=== PATIENT | male | born 1990 | race Hispanic/Latino ===

== ENCOUNTER 2018-12-10 02:00 | Emergency (ER) | payer BC, SELFPAY ==
[2018-12-10] MEDS ORDERED: MAGNE/ALUM HYDROXD 30 ML UCUP ONE (02:35)
[2018-12-10] MEDS ORDERED: LIDOCAINE VISCOUS 2% SOLN 15 ML UDC ONE (02:35)
[2018-12-10 02:53] LABS: Absolute Lymphocytes (CBC) 2.5 K/uL (0.7-4.9); Basophils % 0.5 % (0-1.3); Hematocrit 41.2 % (39.6-49.0); Lymphocytes % 30.6 % (15.3-44.8); MPV 8.2 fL (7.6-11.3); RBC Red Blood Cell Count 4.56 M/uL (4.33-5.43)
[2018-12-10 03:05] LABS: BUN Blood Urea Nitrogen 14 mg/dL (7-18); Bicarbonate 27 mmol/L (21-32); Glucose Level 97 mg/dL (74-106); Lipase 244 U/L (73-393); Potassium 3.8 mmol/L (3.5-5.1); Sodium Level 141 mmol/L (136-145); Troponin (Emerg Dept Use Only) < 0.02 ng/mL (0.0-0.045)
[2018-12-10 03:32] LABS: Barbiturates NEGATIVE (NEGATIVE); Benzodiazepines NEGATIVE (NEGATIVE); Cocaine NEGATIVE (NEGATIVE); METHAMPHETAM NEGATIVE (NEGATIVE); Methadone NEGATIVE (NEGATIVE); Opiates NEGATIVE (NEGATIVE); Phencyclidine NEGATIVE (NEGATIVE); THC Cannibis NEGATIVE (NEGATIVE)
--- NOTE | 2018-12-10 03:50 | EDPHYS ---
Physician Documentation [facility] Name: Umberto Hobson Age: 28 yrs Sex: Male : 1990 Arrival Date: 12/10/2018 Time: 02:01 Bed 13 Private MD: ED Physician Brandon Jesus HPI: 12/10 02:23 This 28 yrs old Male presents to ER via Ambulatory with complaints of Chest pkl Pain. 02:23 The patient or guardian reports chest pain that is located primarily in the substernal pkl area. The pain does not radiate. Associated signs and symptoms: The patient has no apparent associated signs or symptoms. The chest pain is described as tightness. Historical: - Allergies: 02:18 No Known Allergies; fc - Home Meds: 02:18 None [Active]; fc - PMHx: 02:18 None; fc - PSHx: 02:18 Appendectomy; fc - Immunization history:: Last tetanus immunization: unknown. - Social history:: Smoking status: Patient/guardian denies using tobacco, the patient reports quitting approximately .1 years ago, Patient/guardian denies using alcohol, street drugs. - Ebola Screening: : Patient negative for fever greater than or equal to 101.5 degrees Fahrenheit, and additional compatible Ebola Virus Disease symptoms Patient denies exposure to infectious person Patient denies travel to an Ebola-affected area in the 21 days before illness onset. ROS: 02:23 Eyes: Negative for injury, pain, redness, and discharge, ENT: Negative for injury, pkl pain, and discharge, Neck: Negative for injury, pain, and swelling. 02:23 Cardiovascular: Positive for chest pain. 02:23 Respiratory: Negative for cough, shortness of breath. 02:23 Abdomen/GI: Negative for abdominal pain, nausea, vomiting, and diarrhea. 02:23 Back: Negative for acute changes. 02:23 : Negative for urinary symptoms. 02:23 MS/extremity: Negative for acute changes. 02:23 Skin: Negative for rash. 02:23 Neuro: Negative for altered mental status. Exam: 02:23 Head/Face: Normocephalic, atraumatic. Eyes: Pupils equal round and reactive to light, pkl extra-ocular motions intact. Lids and lashes normal. Conjunctiva and sclera are non-icteric and not injected. Cornea within normal limits. Periorbital areas with no swelling, redness, or edema. ENT: Nares patent. No nasal discharge, no septal abnormalities noted. Tympanic membranes are normal and external auditory canals are clear. Oropharynx with no redness, swelling, or masses, exudates, or evidence of obstruction, uvula midline. Mucous membranes moist. Neck: Trachea midline, no thyromegaly or masses palpated, and no cervical lymphadenopathy. Supple, full range of motion without nuchal rigidity, or vertebral point tenderness. No Meningismus. Chest/axilla: Normal chest wall appearance and motion. Nontender with no deformity. No lesions are appreciated. Cardiovascular: Regular rate and rhythm with a normal S1 and S2. No gallops, murmurs, or rubs. Normal PMI, no JVD. No pulse deficits. Respiratory: Lungs have equal breath sounds bilaterally, clear to auscultation and percussion. No rales, rhonchi or wheezes noted. No increased work of breathing, no retractions or nasal flaring. Abdomen/GI: Soft, non-tender, with normal bowel sounds. No distension or tympany. No guarding or rebound. No evidence of tenderness throughout. Back: No spinal tenderness. No costovertebral tenderness. Full range of motion. Skin: Warm, dry with normal turgor. Normal color with no rashes, no lesions, and no evidence of cellulitis. MS/ Extremity: Pulses equal, no cyanosis. Neurovascular intact. Full, normal range of motion. Neuro: Awake and alert, GCS 15, oriented to person, place, time, and situation. Cranial nerves II-XII grossly intact. Motor strength 5/5 in all extremities. Sensory grossly intact. Cerebellar exam normal. Normal gait. Vital Signs: 02:02 BP 121 / 82; Pulse 66; Resp 18; Temp 99.1(O); Pulse Ox 100% on R/A; Weight 88.45 kg fc (R); Height 5 ft. 7 in. (170.18 cm) (R); Pain 8/10; 03:00 BP 122 / 88; Pulse 72; Resp 16; Pulse Ox 100% on R/A; jb4 04:00 BP 107 / 68; Pulse 65; Resp 16; Pulse Ox 98% on R/A; jb4 02:02 Body Mass Index 30.54 (88.45 kg, 170.18 cm) fc MDM: 02:05 Patient medically screened. pkl 02:36 Data reviewed: vital signs, nurses notes. ED course: now said patient has pkl recurrent frontal headache off and on for more than 3 months. Also he has patchy rash on both legs for about 2 weeks. rashes not itchy. 03:45 ED course: Patient feeling better. Asymptomatic. Discussed lab. and X' rays results pkl with patient and . Advised to follow PCP in 2 to 3 days for further evaluations. Patient and understood instructions. 12/10 02:23 Order name: CBC with Diff; Complete Time: 03:17 pkl 12/10 02:23 Order name: Chem 7; Complete Time: 03:17 pkl 12/10 02:23 Order name: D-Dimer; Complete Time: 03:17 pkl 12/10 02:23 Order name: Troponin (emerg Dept Use Only); Complete Time: 03:17 pkl 12/10 02:23 Order name: Lipase; Complete Time: 03:17 pkl 12/10 02:27 Order name: UDS; Complete Time: 03:37 pkl 12/10 02:23 Order name: XRAY CXR (1 view) pkl 12/10 02:40 Order name: CT Head Brain wo Cont pkl 12/10 03:13 Order name: Urine Dipstick--Ancillary (enter results) mw2 Administered Medications: 02:45 Drug: GI Cocktail without - (Maalox Suspension 30 ml, Lidocaine Liquid 2 % 15 jb4 ml) {Note: PT consumed half of the medication then decided not to take the rest..} Route: PO; 04:17 Follow up: Response: No adverse reaction jb4 Disposition: 12/10/18 03:49 Discharged to Home. Impression: Chest pain. Recurrent headaches. Rash both legs. - Condition is Stable. - Prescriptions for Protonix 40 mg Oral Tablet, Delayed Release (E.C.) - take 1 tablet by ORAL route once daily; 15 tablet. Ultram 50 mg Oral Tablet - take 1 tablet by ORAL route every 8 hours As needed; 15 tablet. - Medication Reconciliation Form, Thank You Letter, Antibiotic Education, Prescription Opioid Use form. - Follow up: Private Physician; When: 2 - 3 days; Reason: Re-evaluation by your physician. - Problem is new. - Symptoms have improved. Signatures: Dispatcher [employer] Brandon Balderrama MD MD pkl Samaria Gomez RN RN Soy Aldana RN RN jb4 Corrections: (The following items were deleted from the chart) 04:18 03:49 12/10/2018 03:49 Discharged to Home. Impression: Chest pain. Recurrent headaches. jb4 Rash both legs. Condition is Stable. Forms are Medication Reconciliation Form, Thank You Letter, Antibiotic Education, Prescription Opioid Use. Follow up: Private Physician; When: 2 - 3 days; Reason: Re-evaluation by your physician. Problem is new. Symptoms have improved. pkl
--- NOTE | 2018-12-10 03:50 | ER ---
Nurse's Notes [facility] Name: Umberto Hobson Age: 28 yrs Sex: Male : 1990 Arrival Date: 12/10/2018 Time: 02:01 Bed 13 Private MD: Diagnosis: Chest pain. Recurrent headaches. Rash both legs Presentation: 12/10 02:02 Presenting complaint: Patient states: that 1 hr [employer] he started to have chest pain while fc he was laying down. Denies any shortness of breath, nausea or vomiting. Transition of care: patient was not received from another setting of care. Onset of symptoms was December 10, 2018 at 01:00. Risk Assessment: Do you want to hurt yourself or someone else? Patient reports no desire to harm self or others. Initial Sepsis Screen: Does the patient meet any 2 criteria? No. Patient's initial sepsis screen is negative. Does the patient have a suspected source of infection? No. Patient's initial sepsis screen is negative. Care prior to arrival: None. 02:02 Method Of Arrival: Ambulatory 02:02 Acuity: RUDY 3 fc Historical: - Allergies: 02:18 No Known Allergies; fc - Home Meds: 02:18 None [Active]; fc - PMHx: 02:18 None; fc - PSHx: 02:18 Appendectomy; fc - Immunization history:: Last tetanus immunization: unknown. - Social history:: Smoking status: Patient/guardian denies using tobacco, the patient reports quitting approximately .1 years ago, Patient/guardian denies using alcohol, street drugs. - Ebola Screening: : Patient negative for fever greater than or equal to 101.5 degrees Fahrenheit, and additional compatible Ebola Virus Disease symptoms Patient denies exposure to infectious person Patient denies travel to an Ebola-affected area in the 21 days before illness onset. Screenin:17 Abuse screen: Denies threats or abuse. Nutritional screening: No deficits noted. Tuberculosis screening: No symptoms or risk factors identified. Fall Risk None identified. Assessment: 02:10 General: Appears in no apparent distress. uncomfortable, Behavior is calm, cooperative, jb4 appropriate for age. Pain: Complains of pain in chest Pain does not radiate. Pain currently is 8 out of 10 on a pain scale. Quality of pain is described as It feels tight Pain began 1 hour ago. Neuro: Level of Consciousness is awake, alert, obeys commands, Oriented to person, place, time, situation. Cardiovascular: Patient's skin is warm and dry. Rhythm is sinus rhythm. Respiratory: Airway is patent Respiratory effort is even, unlabored, Respiratory pattern is regular, symmetrical. GI: No deficits noted. No signs and/or symptoms were reported involving the gastrointestinal system. : No deficits noted. No signs and/or symptoms were reported regarding the genitourinary system. EENT: No deficits noted. No signs and/or symptoms were reported regarding the EENT system. Derm: Skin Skin is pink, warm \T\ dry. Musculoskeletal: Circulation, motion, and sensation intact. Range of motion: intact in all extremities. 03:03 Reassessment: Patient appears in no apparent distress at this time. Patient and/or jb4 family updated on plan of care and expected duration. Pain level reassessed. Patient is alert, oriented x 3, equal unlabored respirations, skin warm/dry/pink. 04:10 Reassessment: Patient appears in no apparent distress at this time. Patient and/or jb4 family updated on plan of care and expected duration. Pain level reassessed. Patient is alert, oriented x 3, equal unlabored respirations, skin warm/dry/pink. PT verbalized understanding of d/c and follow up instructions. Vital Signs: 02:02 BP 121 / 82; Pulse 66; Resp 18; Temp 99.1(O); Pulse Ox 100% on R/A; Weight 88.45 kg fc (R); Height 5 ft. 7 in. (170.18 cm) (R); Pain 8/10; 03:00 BP 122 / 88; Pulse 72; Resp 16; Pulse Ox 100% on R/A; jb4 04:00 BP 107 / 68; Pulse 65; Resp 16; Pulse Ox 98% on R/A; jb4 02:02 Body Mass Index 30.54 (88.45 kg, 170.18 cm) ED Course: 02:01 Patient arrived in ED. ds1 02:02 Arm band placed on Patient placed in an exam room, on a stretcher. fc 02:02 Patient has correct armband on for positive identification. Placed in gown. Bed in low fc position. Call light in reach. nurse monitoring on. Pulse ox on. NIBP on. 02:05 Brandon Jesus MD is Attending Physician. pkl 02:16 Triage completed. 02:22 Soy Aldana, RN is Primary Nurse. jb4 02:48 XRAY CXR (1 view) In Process Unspecified. EDMS 03:00 CT Head Brain wo Cont In Process Unspecified. EDMS 04:00 No provider procedures requiring assistance completed. IV discontinued, intact, jb4 bleeding controlled, No redness/swelling at site. Pressure dressing applied. Patient maintains SpO2 saturation greater than 95% on room air. Administered Medications: 02:45 Drug: GI Cocktail without - (Maalox Suspension 30 ml, Lidocaine Liquid 2 % 15 jb4 ml) {Note: PT consumed half of the medication then decided not to take the rest..} Route: PO; 04:17 Follow up: Response: No adverse reaction jb4 Outcome: 03:49 Discharge ordered by . pkl 04:00 Discharged to home ambulatory, with family. jb4 04:00 Condition: stable 04:00 Discharge instructions given to patient, family, Instructed on discharge instructions, follow up and referral plans. medication usage, Demonstrated understanding of instructions, follow-up care, medications, Prescriptions given X 3. 04:18 Patient left the ED. jb4 Signatures: Dispatcher [employer] EDCT Brandon Jesus MD MD pkSamaria Garcia, RN RN Eunice Fields ds1 Soy Aldana, RN RN jb4
[2018-12-10 04:52] VITALS: TEMP 99.1
[2018-12-10 04:54] VITALS: BP 107/68; O2SAT 98
--- NOTE | 2018-12-10 06:40 | RAD REPORT ---
EXAM DESCRIPTION: RAD - Chest Single View - 12/10/2018 2:48 am CLINICAL HISTORY: CHEST PAIN Chest pain. COMPARISON: <Comparisons> FINDINGS: Portable technique limits examination quality. The lungs are grossly clear. The heart is normal in size. No displaced fractures. IMPRESSION: No acute intrathoracic process suspected.
[2018-12-10 08:18] LABS: Urine Blood TRACE (NEG); Urine Glucose NEGATIVE (NEG); Urine Protein NEGATIVE (NEG); Urine Specific Gravity >1.030 (1.005-1.030)
--- NOTE | 2018-12-10 10:05 | RAD REPORT ---
EXAM DESCRIPTION: CT HEAD WITHOUT CONTRAST CLINICAL HISTORY: HEADACHE COMPARISON: None. TECHNIQUE: Axial [address] imaging of the brain. Reformatted coronal and sagittal images ob tained. This examination was performed according to our departmental dose optimization program, which include s automated exposure control, adjustment of the mA and/or kV according to patient size and/or use of iterative reconstruction technique. FINDINGS: Normal ventricle size and contour. Extra-axial fluid spaces appear normal. Guillen-white mica er differentiation is preserved. There is no edema, hemorrhage, mass, or midline shift. No large acut e territorial infarction. No hyperdense vessel. Normal cerebellum, vermis, fourth ventricle. No cerebellar tonsillar ectopia. Prepontine cisterns are not effaced. Normal sella contents. Normal appearance of the intraorbital contents. Clear paranasal sinuses. Mastoid air cells are clear bilaterally. Skull base is intact. Intact calvarium. Normal scalp soft tissues. IMPRESSION: 1. Negative CT brain. Electronically signed by: Kalina Valenzuela DO 12/10/2018 3:08 AM CDT Due to temporary technical issues with the PACS/Fluency reporting system, reports are being signed by the in house radiologist as a courtesy to ensure prompt reporting. The interpreting radiologist is f ully responsible for the content of the report.
--- NOTE | 2018-12-10 12:13 | EKG ---
Test Date: 2018-12-10 Test Time: 02:07:24 [employer]our Mixer Helper: KYLER MEASUREMENT RESULTS: Intervals: Rate: 66 NM: 144 QRSD: 98 QT: 378 QTc: 396 [place]: P: 39 NM: 144 QRS: -10 T: 20 INTERPRETIVE STATEMENTS: Normal sinus rhythm Normal ECG No previous ECG available for comparison Electronically Signed On 12-10-18 12:10:21 CDT by Kelby Tovar
== END 2018-12-10 04:18 | disposition home or self-care (01) ==
LOC: ER 02:00
DX: R51 Headache (principal); R21 Rash and other nonspecific skin eruption
CPT/HCPCS: 36415; 70450; 71045; 80048; 80307; 81003; 83690; 84484; 85025; 85379; 93005; 99285